=== PATIENT | male | born 1940 | race Caucasian/White ===

== ENCOUNTER 2017-03-15 13:39 | Outpatient (CLI) | payer OTHER, MEDICARE | END 2017-03-15 13:40 | LOC: POD 13:39 | PROVIDERS: ATTEND Podiatrist | DX: L60.0 Ingrowing nail (principal); B35.1 Tinea unguium; M79.674 Pain in right toe(s); M79.675 Pain in left toe(s) | CPT/HCPCS: 11721; G0463 ==